=== PATIENT | male | born 1975 | race Caucasian/White ===

== ENCOUNTER 2021-11-07 23:05 | Emergency (ER) | payer MEDICAID ==
[~2021-11-07] VITALS: Ht 172.7 cm; Wt 77.1 kg
[2021-11-07 23:23] VITALS: BP_SYST 165
[2021-11-08 01:53] LABS: BASOPHILS # (AUTO) 0.1 K/uL (0.0-0.2); BASOPHILS % (AUTO) 1.5 % (0.0-2.0); EOSINOPHILS # (AUTO) 0.2 K/uL (0.0-0.4); EOSINOPHILS % (AUTO) 5.4 % (0.0-4.0); HEMATOCRIT 29.5 % (36-54); HEMOGLOBIN 9.7 g/dL (14.0-18.0); LYMPHOCYTES # (AUTO) 1.4 K/uL (1.0-5.5); LYMPHOCYTES % (AUTO) 39.4 % (20.5-51.5); MEAN CORPUSCULAR HEMOGLOBIN 29 pg (27-31); MEAN CORPUSCULAR HGB CONC 33 % (32-36); MEAN CORPUSCULAR VOLUME 89 fL (79.0-98.0); MONOCYTES # (AUTO) 0.2 K/uL (0.0-1.0); MONOCYTES % (AUTO) 6.7 % (1.7-9.3); NEUTROPHILS # (AUTO) 1.7 K/uL (1.8-7.7); PLATELET COUNT (AUTO) 105 K/uL (130-430); RED BLOOD CELL COUNT(AUTO) 3.33 MIL/uL (4.2-6.2); RED CELL DISTRIBUTION WIDTH 19.9 % (9.0-15.0); WHITE BLOOD COUNT (AUTO) 3.6 K/uL (4.8-10.8)
[2021-11-08] MEDS ORDERED: APIX2.5T PO (02:00)
[2021-11-08 02:07] LABS: INR 1.2 (0.80-1.20); PROTHROMBIN TIME 12.4 SECS (9.5-12.5)
[2021-11-08 02:09] LABS: ALBUMIN 2.1 g/dL (3.4-4.8); CREATININE 5.02 mg/dL (0.55-1.30); TOTAL BILIRUBIN 0.3 mg/dL (0.0-1.0)
[2021-11-08 02:18] LABS: CALCIUM 6.9 mg/dL (8.4-11.0)
[2021-11-08] MEDS: APIXABAN 2.5 MG TABLET PO ONE (03:30)
[2021-11-08] MEDS ORDERED: APIXABAN 2.5 MG TABLET ONE (03:37)
[2021-11-08 08:19] VITALS: BP_SYST 142
== END 2021-11-08 08:19 | disposition home or self-care (01) ==
LOC: SED 23:05
DX: I82.B11 Acute embolism and thrombosis of right subclavian vein (principal); E11.22 Type 2 diabetes mellitus with diabetic chronic kidney disease; N18.6 End stage renal disease; Z99.2 Dependence on renal dialysis; Z79.899 Other long term (current) drug therapy; Z79.01 Long term (current) use of anticoagulants; Z89.412 Acquired absence of left great toe
CPT/HCPCS: 36415; 71045; 80053; 85025; 85610-TC; 85730-TC; 99284